=== PATIENT | female | born 1990 | race Native Hawaiian/Other Pacific Islander ===

== ENCOUNTER 2018-07-19 08:00 | Inpatient (IN) | payer OTHER ==
[2018-07-17 17:18] VITALS: BMI 22.8
[2018-07-23] MEDS ORDERED: PHENAZOPYRIDINE HCL 100 MG TABLET (FP) PO ONE (07:00)
[2018-07-23] MEDS ORDERED: PHENAZOPYRIDINE HCL 100 MG TABLET (FP) ONE (07:08)
[2018-07-23] MEDS ORDERED: VASOPRESSIN 20 UNITS/ML VIAL IV ONE (07:28)
[2018-07-23] MEDS ORDERED: ROPIVACAINE HCL 0.5% 30ML VIAL ONE (07:55)
--- NOTE | 2018-07-23 07:56 | HP ---
History & Physical Update - History History: No Change - Physical Physical: No Change - Assessment Assessment: No Change - Plan Plan: No Change (No change from office evaluation on 07/11. No h/o DVT/PE.)
[2018-07-23] MEDS ORDERED: MIDAZOLAM HCL 2 MG/2 ML SINGLE DOSE VIAL ONE ×2 (07:57)
[2018-07-23] MEDS ORDERED: DEXAMETHASONE SOD PHOSPHATE 4 MG/1 ML VIAL ONE ×2 (08:35→09:21)
[2018-07-23] MEDS ORDERED: PROPOFOL 20 ML ONE (08:36)
[2018-07-23] MEDS ORDERED: ROCURONIUM BROMIDE 50 MG/5 ML VIAL ONE (08:36)
[2018-07-23] MEDS ORDERED: ceFAZolin SODIUM 1 GM VIAL IVPB ONE (08:52)
[2018-07-23] MEDS ORDERED: ceFAZolin SODIUM 1 GM VIAL ONE ×2 (08:52→17:07)
[2018-07-23] MEDS ORDERED: GLYCOPYRROLATE 0.2 MG/1 ML VIAL ONE (09:36)
[2018-07-23] MEDS ORDERED: NEOSTIGMINE METHYLSULFATE 0.5 MG/ML - 10 ML MDV ONE (09:36)
[2018-07-23] MEDS ORDERED: PROMETHAZINE HCL 25 MG/1 ML VIAL IVPUSH PRN (10:07)
[2018-07-23] MEDS ORDERED: ACETAMINOPHEN 1000 MG/100 ML VIAL (NON FORMULARY) IVPB ONE (10:07)
[2018-07-23] MEDS ORDERED: DEXAMETHASONE SOD PHOSPHATE 4 MG/1 ML VIAL IVPUSH PRN (10:08)
[2018-07-23] MEDS ORDERED: ONDANSETRON 4 MG/2 ML VIAL IVPUSH PRN (10:08)
[2018-07-23] MEDS ORDERED: PROMETHAZINE HCL 25 MG/1 ML VIAL IVPB PRN (10:08)
--- NOTE | 2018-07-23 10:13 | OP ---
Operative Note - Note: Operative Date: 07/23/18 Pre-Operative Diagnosis: Leiomyomatous Uterus. cervical polyp Operation: Abdominal myomectomy. Cervical polyp Findings: 7 cm posterior myoma 4 cm polyp Post-Operative Diagnosis: Same as Pre-op Surgeon: Dana Nova Anesthesia: General Estimated Blood Loss (mls): 40 Operative Report Dictated: Yes
[2018-07-23] MEDS ORDERED: HYDROmorphone *PCA* 10MG/50ML DISP.SYRIN PCA SCH ×2 (10:15→10:56)
[2018-07-23] MEDS ORDERED: BISACODYL 5 MG TABLET.DR (FP) PO ONE (10:28)
[2018-07-23] MEDS ORDERED: LACTATED RINGERS SOLUTION 1,000 ML/1,000 ML INFUS.BAG IV SCH (10:30)
--- NOTE | 2018-07-23 10:42 | SURG ---
Surgery Business Technology Teacher Note Business Technology Teacher: Felisa Taveras PA-C (Suzy) Date of Service: 07/23/18 Diagnosis: Leiomyomatous Uterus. cervical polyp Procedure: Abdominal myomectomy. Cervical polyp I was present for the entirety of the operative procedure. For further detail, please refer to operative report. Visit type - Case Type Case Type: Scheduled - Emergency Emergency Visit: No - New patient This patient is new to me today: Yes Date on this admission: 07/23/18 - Critical Care Critical Care patient: No
[2018-07-23] MEDS ORDERED: IBUPROFEN 800 MG/8 ML IJ IVPB PRN (12:00)
[2018-07-23] MEDS: DOCUSATE SODIUM 100 MG CAPSULE (FP) PO SCH ×2 (15:03→22:19)
[2018-07-23] MEDS ORDERED: ACETAMINOPHEN 325 MG TABLET (FP) PO PRN (16:30)
[2018-07-23] MEDS ORDERED: DEXTROSE 5%-WATER - 50 ML IVPB ONE (17:07)
[2018-07-23] MEDS: CEFAZOLIN 1 GM in DEXTROSE 5%-WATER - 50 ML IVPB SCH (17:17)
[2018-07-23] MEDS ORDERED: HYDROmorphone *PCA* 10MG/50ML DISP.SYRIN PCA ONE (18:15)
[2018-07-23 18:54] LABS: BASO % 0.1 % (0-2.0); HEMATOCRIT 39.9 % (32.4-45.2); HEMOGLOBIN 13.5 GM/dL (10.7-15.3); LYMPH % 6.7 % (8-40); MCHC 33.9 g/dl (32.0-36.0); MEAN CELL VOLUME 88.3 fl (80-96); MONO % 0.7 % (3.8-10.2); NEUT % 92.5 % (42.8-82.8); PLATELET COUNT 263 K/MM3 (134-434); RBC 4.51 M/mm3 (3.60-5.2); WHITE BLOOD COUNT 15.6 K/mm3 (4.0-10.0)
--- NOTE | 2018-07-23 19:19 | OP ---
DATE OF OPERATION: 07/23/2018 PREOPERATIVE DIAGNOSIS: Leiomyomatous uterus and cervical polyp. OPERATION: Abdominal myomectomy and cervical polypectomy. FINDINGS: A 4-cm cervical polyp and a 7-cm posterior myoma. SURGEON: Juani Nova MD AIRPORT SALES AGENT: SEVEN Taveras ANESTHESIA: General. ANESTHESIOLOGIST: Maximilian Paula MD ESTIMATED BLOOD LOSS: 40 mL PROCEDURE: Patient was taken to the operating room, placed in supine position, prepped and draped in the usual sterile fashion. Timeout was called in accordance with hospital regulation. Pfannenstiel skin incision was made with a scalpel. Cautery was then used to go through layers of abdominal wall to level of the fascia. Fascia was cut in the midline, and cautery was then used to open the fascia in the following fashion. Kochers were then used to bluntly and sharply dissect the rectus muscle off the fascia. Muscles split in the midline. Peritoneal cavity was then entered, carried upward and downward. Bladder retractor was then placed. The peritoneal cavity was then entered, and uterus was then exteriorized. The posterior myoma was noted. Pitressin was infiltrated into the serosa. A vertical incision was made on the serosa, and a 7- to 8-cm myoma was then enucleated out of the cavity. Cavity was then closed using 0 Vicryl suture in a continuous and locking and 2-0 V-Loc suture was used on serosa. Hemostasis was then achieved. Uterus was then interiorized. Tubes and ovaries were noted to be normal. Abdominal sweep done. Peritoneum closed using 0 Vicryl suture. Muscles approximated in the midline using 0 Vicryl suture. Fascia was then closed using 0 Vicryl suture in 2 parts, 2-0 Vicryl suture was then used to close the subcutaneous in interrupted sutures, and skin was then closed using 3-0 Vicryl in subcuticular fashion. Wound was washed and dressed. Steri-Strips were placed. Attention was then drawn to the vagina where speculum was placed in the vagina, and the cervical polyp was seen coming off of the cervix. Metzenbaum scissors were then used to cut the polyp away, and 2-0 Vicryl was then used to close the incision. Silver nitrate was then placed for further hemostasis. All instruments were then removed. Polyp was then submitted to pathology along with the posterior myoma. The EBL was 40 mL. The patient had tolerated the procedure well, was taken to recovery room in stable condition. JUANI NOVA M.D. [id number]
[2018-07-23 19:53] LABS: PLATELET ESTIMATE ADEQUATE
[2018-07-24] MEDS ORDERED: ceFAZolin SODIUM 1 GM VIAL ONE ×2 (01:19→10:33)
[2018-07-24] MEDS ORDERED: DEXTROSE 5%-WATER - 50 ML IVPB ONE ×2 (01:19→10:33)
[2018-07-24] MEDS: CEFAZOLIN 1 GM in DEXTROSE 5%-WATER - 50 ML IVPB SCH ×2 (01:22→10:38)
[2018-07-24] MEDS: DOCUSATE SODIUM 100 MG CAPSULE (FP) PO SCH ×3 (06:06→21:24)
--- NOTE | 2018-07-24 07:47 | PN ---
Progress Note (short form) - Note Progress Note: POD 1, s/p open abdominal myomectomy Pt seen and examined. States she is feeling "okay". Reports abdominal pain with movement, relieved by ETHANOL MAINTENANCE MECHANIC. Has minimal vaginal bleeding, no clots. Reports difficulty breathing at times during night, uses inhaler at home with relief. Tolerating PO. Has not been oob. Townsend in place. Denies cp/sob, n/v/d, calf pain /edema. Vital Signs Temp 98.6 F 07/24/18 05:17 Pulse 94 H 07/24/18 05:17 Resp 20 07/24/18 05:17 BP 102/57 L 07/24/18 05:17 Pulse Ox 100 07/24/18 01:28 Intake & Output 07/23/18 07/23/18 07/24/18 11:59 23:59 11:59 Intake Total 1700 1050 1000 Output Total 490 2100 800 Balance 1210 -1050 200 Intake: IV 1700 1000 1000 LACTATED RINGERS SOLUTION 1000 1000 1,000 ml In 1,000 ml @ 100 mls/hr IV ASDIR VANESSA Rx#:[id number] IVPB 50 Output: Urine 450 2100 800 Townsend 1900 800 Estimated Blood Loss 40 Other: Voiding Method Indwelling Catheter CBC, BMP 07/24/18 06:30 07/24/18 06:30 Gen: awake, alert, nad Resp: cta b/l CV: rrr, s1s2 Abdomen: soft, nt/nd, abdominal dressings c/d/i, 4x4's in abd with minimal bloody drainage. No incisional erythema or drainage. No palpable hematoma. Ext: soft, no edema or ttp A/P: 27 y/o F w/ h/o Leiomyomatous Uterus, now s/p open abdominal myomectomy on 07/23. Low grade fevers overnight (99F), slightly tachycardic this morning likely due to pain. ETHANOL MAINTENANCE MECHANIC used minimally overnight. Labs stable. -ETHANOL MAINTENANCE MECHANIC d/c'ed, pain control with Oxycodone 5/10mg q4hrs prn, Tylenol 650mg q4hrs prn, Ibuprofen 800mg q8hrs prn -Townsend out this AM, TOV -DVT prophylaxis with Lovenox 40sq qd, b/l venodynes, ambulation -oob as tolerated -Advance diet to regular diet -VSS per routine -Incentive spirometry encouraged -Bowel regimen as ordered -Plan for d/c tomorrow d/w attending Dr Nova
[2018-07-24 07:51] LABS: HEMATOCRIT 37.5 % (32.4-45.2); HEMOGLOBIN 12.4 GM/dL (10.7-15.3); MCH 29.2 pg (25.7-33.7); MCHC 33.1 g/dl (32.0-36.0); MEAN CELL VOLUME 88.2 fl (80-96); MEAN PLT VOLUME 8.5 fl (7.5-11.1); PLATELET COUNT 246 K/MM3 (134-434); RBC 4.25 M/mm3 (3.60-5.2)
[2018-07-24 08:15] LABS: ANION GAP 8 MMOL/L (8-16); BLOOD UREA NITROGEN 9 mg/dL (7-18); CHLORIDE 103 mmol/L (98-107); CO2 26 mmol/L (21-32); CREATININE 0.6 mg/dL (0.55-1.3); GLUCOSE,RANDOM 101 mg/dL (74-106); SODIUM 137 mmol/L (136-145)
[2018-07-24] MEDS ORDERED: oxyCODONE HCL 5 MG TABLET PO PRN (08:22)
[2018-07-24] MEDS ORDERED: ALBUTEROL SO4 8 GM HFA INHALER IH PRN (08:27)
[2018-07-24] MEDS ORDERED: PCA PUMP KEY 1 EACH EACH ONE (08:34)
[2018-07-24] MEDS ORDERED: ENOXAPARIN NA (PORCINE) 30 MG/0.3 ML DISP.SYRIN SQ SCH (10:00)
[2018-07-24] MEDS: oxyCODONE HCL 5 MG TABLET PO PRN ×2 (10:40→15:37)
[2018-07-24] MEDS: ENOXAPARIN NA (PORCINE) 40 MG/0.4 ML DISP.SYRIN SQ SCH (10:41)
--- NOTE | 2018-07-24 15:37 | PN ---
Progress Note (short form) - Note Progress Note: Anesthesia postop note 27 y/o F s/p GA for abdominal myomectomy, tap blocks and infrastructure project manager for postop pain management POD31, vss, aaox3, pain well controlled over night, no anesthesia complications , infrastructure project manager dc'ed.
[2018-07-24] MEDS: ACETAMINOPHEN 325 MG TABLET (FP) PO PRN ×2 (15:38→22:09)
[2018-07-25] MEDS: DOCUSATE SODIUM 100 MG CAPSULE (FP) PO SCH (06:23)
--- NOTE | 2018-07-25 08:33 | PN ---
Progress Note (short form) - Note Progress Note: POD 2, s/p open abdominal myomectomy Pt seen and examined. Feels well today. Still has some abdominal pain with movement, improved with PO meds. Has been oob, voiding without issues. Tolerating PO. Has minimal vaginal bleeding, no clots. Reports improvement in SOB. Denies cp/sob, n/v/d, calf pain/edema. Vital Signs Temp 98.4 F 07/24/18 21:00 Pulse 82 07/24/18 21:00 Resp 20 07/24/18 21:00 BP 101/59 L 07/24/18 21:00 Pulse Ox 100 07/24/18 01:28 Intake & Output 07/24/18 07/24/18 07/25/18 11:59 23:59 11:59 Intake Total 1000 Output Total 1150 950 Balance -150 -950 Intake: IV 1000 LACTATED RINGERS SOLUTION 1000 1,000 ml In 1,000 ml @ 100 mls/hr IV ASDIR VANESSA Rx#:[id number] Output: Urine 1150 950 Townsend 1150 Void 950 Other: Voiding Method Toilet Bowel Movement No No CBC, BMP 07/24/18 06:30 07/24/18 06:30 Gen: awake, alert, nad Resp: cta b/l CV: rrr, s1s2 Abdomen: soft, nt/nd, abdominal dressings c/d/i, 4x4's in abd with minimal bloody drainage. No incisional erythema or drainage. No palpable hematoma. Ext: soft, no edema or ttp A/P: 27 y/o F w/ h/o Leiomyomatous Uterus, now s/p open abdominal myomectomy on 07/23. Doing well this AM. Ready for discharge. Discharge instructions discussed with pt. All questions answered. d/w attending Dr Nova
[2018-07-25 08:53] VITALS: BP 100/63; PULSE 83; TEMP 99.1
--- NOTE | 2018-07-25 08:58 | DS ---
Physical Exam: SUBJECTIVE: Patient seen and examined on the morning of discharge. Doing well, no issues overnight. No complaints. Denies cp/sob, n/v/d, calf pain or edema. OBJECTIVE: Vital Signs Period Temp Pulse Resp BP Sys/Healy Pulse Ox Last 24 Hr 98.4 F-98.9 F 82-86 20-20 101-108/57-72 PHYSICAL EXAM GENERAL: The patient is awake, alert, and fully oriented, in no acute distress. HEAD: Normal with no signs of trauma. EYES: PERRL, extraocular movements intact, sclera anicteric, conjunctiva clear. ENT: Ears normal, nares patent, oropharynx clear without exudates, moist mucous membranes. NECK: Trachea midline, full range of motion, supple. LUNGS: Breath sounds equal, clear to auscultation bilaterally, no wheezes, no crackles, no accessory muscle use. HEART: Regular rate and rhythm, S1, S2 without murmur, rub or gallop. ABDOMEN: Soft, nontender, nondistended, normoactive bowel sounds, no guarding, no rebound, no hepatosplenomegaly, no masses. EXTREMITIES: 2+ pulses, warm, well-perfused, no edema. NEUROLOGICAL: Cranial nerves II through XII grossly intact. Normal speech, gait not observed. PSYCH: Normal mood, normal affect. SKIN: Warm, dry, normal turgor, no rashes or lesions noted. LABS Laboratory Results - last 24 hr 07/24/ 06:30 WBC 14.0 H RBC 4.25 Hgb 12.4 Hct 37.5 MCV 88.2 MCH 29.2 MCHC 33.1 RDW 13.0 Plt Count 246 MPV 8.5 HOSPITAL COURSE: The patient was admitted to the Gynecologic Unit after elective open abdominal myomectomy for a history of leiomyomas. Pt tolerated the surgery well with no complications. Rea-operative IV ABX were administered. Pain control was achieved with narcotic and non-narcotic pain management with an oral and IV approach. POD #1, the patients banks was removed and diet was advanced. Patient passed TOV. DVT prophylaxis was achieved with Lovenox 40mg qd, SCDs and early ambulation. The patient ambulated the halls without issue. Narcotic scripts were checked with [facility] ANESTHESIOLOGY MEDICAL DOCTOR prior to escribe. The discharge instructions and an oral pain management plan were reviewed with the patient. All questions answered. Above plan discussed with Dr. Nova and agreed. Date of Admission: 07/23/18 Date of Discharge: 07/25/18 Minutes to complete discharge: 15 Discharge Summary Reason For Visit: LEIOMYOMA OF UTERUS Condition: Stable - Instructions Diet, Activity, Other Instructions: Dr. Dana Nova Clinical Educator discharge instructions Physical activity Resume your normal everyday activity as tolerated no heavy lifting or exercise until seen by your surgeon. You may walk unlimited marsha of and climb stairs. You may resume driving the car when you feel safe and comfortable behind the wheel. No sexual activity as instructed by Dr. Nova. Wound care If you have a bandage, leave it on, and keep dry for 48-72 hours. After that time discard the outer bandage. If they are tapes on the skin under the out of bandage leave them in place. They will peel off in the next 7 to 10 days. Do Not Peel them off. You may shower the day after surgery. If there are tapes present on the skin, you may shower over them. Diet There are no dietary restrictions. Eat healthy, high-fiber foods. Drink 6 to 8 glasses of liquid each day. This will assist in keeping your bowels are regular. Pain management You may take Tylenol (acetaminophen) or Ibuprofen (for example, Motrin, Advil etc.) from my pain prescription medication is ordered should be taken as prescribed for moderate to severe pain. Call Dr. Nova for any of the following: Severe pain not relieved by medication Fever of 101 or higher Excessive bleeding or drainage on dressing Inability to urinate ISTOP Reference: [id number] Call the office at [phone] for an appointment in seven days. Disposition: HOME - Home Medications Comprehensive Discharge Medication List: Ambulatory Orders Oxycodone HCl 5 mg PO Q6H 7 Days #20 tablet MDD 6 07/23/18 Problem List - Problems (1) Leiomyoma Code(s): D21.9 - BENIGN NEOPLASM OF CONNECTIVE AND OTHER SOFT TISSUE, UNSP This patient is new to me today: Yes Date on this admission: 07/25/18 Emergency Visit: No Critical Care patient: No - Discharge Referral Referred to [facility] Med P.C.: No
[2018-07-25] MEDS: ENOXAPARIN NA (PORCINE) 40 MG/0.4 ML DISP.SYRIN SQ SCH (10:22)
--- NOTE | 2018-07-25 18:27 | PATH ---
Surgical Pathology Report Patient Name: ODILIA CONTI [facility]. Rec. #: [id number] /Age/Gender: 1990 (Age: 27) / F Account: [id number] Location: [facility] OBS/NUCLEAR CRITICALITY SAFETY ENGINEER Taken: 07/23/2018 Received: 07/23/2018 Reported: 07/25/2018 Physicians: Dana Nova M.D. Specimen(s) Received A: FIBROID B: CERVICAL POLYP Clinical History Fibroid uterus and cervical polyp Final Diagnosis A. FIBROID, MYOMECTOMY: LEIOMYOMA. B. CERVICAL POLYP, POLYPECTOMY: BENIGN ACUTELY INFLAMED ECTOCERVICAL POLYP. Electronically Signed Leanna Tamez M.D. Gross Description A. Received in formalin labeled "fibroid," is a 67 g 5.5 x 5.5 x 4.4 cm pink-soria nodule, consistent with a fibroid. Sectioning reveals homogeneous pink-soria parenchyma with whorled architecture. No areas of hemorrhage or necrosis are identified. Plasma Processing Centrifuge Operator sections are submitted in 3 cassettes. B. Received in formalin labeled "cervical polyp," is a 3.2 x 1.7 x 0.3 cm pink-soria, polypoid portion of soft tissue. The specimen is bisected and entirely submitted in 2 cassettes. DL/07/23/201807/23/2018
== END 2018-07-25 11:15 | disposition home or self-care (01) | DRG 519 ==
LOC: JSAMEDAYSX 07-23 04:55 → J3W 07-23 12:54
PROVIDERS: ADMIT Obstetrics & Gynecology; ATTEND Obstetrics & Gynecology
PROC: 0UBC0ZX Excision of Cervix, Open Approach, Diagnostic (ICD-10-PCS; 2018-07-23)
PROC: 0UB90ZZ Excision of Uterus, Open Approach (ICD-10-PCS; principal; 2018-07-23 08:00)
DX: D25.9 Leiomyoma of uterus, unspecified (principal); N84.1 Polyp of cervix uteri; D64.9 Anemia, unspecified; R00.0 Tachycardia, unspecified; R50.9 Fever, unspecified
CPT/HCPCS: 36415; 80048; 84703; 85025; 85027; 86850; 86900; 86901; 88305-TC; 94760; J0131

== ENCOUNTER 2019-06-12 15:37 | Emergency (ER) | payer OTHER ==
--- NOTE | 2019-06-12 15:41 | PDOC ---
Rapid Medical Evaluation Time Seen by Provider: 06/12/19 15:38 Medical Evaluation: Allergies Allergy/AdvReac Type Severity Reaction Status Date / Time No Known Allergies Allergy Verified 07/17/18 17:18 06/12/19 15:39 CC: nausea and vomiting. Blood streaked vomitus. PE: No focal findings. Orders: urine Patient will proceed to ER for further evaluation. 06/12/19 15:40 06/12/19 15:41 Discharge Disposition - Diagnosis Vomiting - Referrals - Patient Instructions - Post Discharge Activity
[2019-06-12 15:43] VITALS: TEMP 98.1; BMI 26.6
[2019-06-12] MEDS ORDERED: SODIUM CHLORIDE 1,000 ML IV STA (17:04)
[2019-06-12] MEDS ORDERED: MECLIZINE HCL 25 MG TABLET (FP) PO ONE (17:04)
[2019-06-12] MEDS ORDERED: ONDANSETRON 4 MG/2 ML VIAL IVPUSH ONE (17:04)
[2019-06-12] MEDS ORDERED: MECLIZINE HCL 25 MG TABLET (FP) ONE (17:08)
[2019-06-12] MEDS ORDERED: ONDANSETRON 4 MG/2 ML VIAL ONE (17:08)
[2019-06-12] MEDS ORDERED: PANTOPRAZOLE SODIUM 40 MG VIAL IVPUSH ONE (17:14)
[2019-06-12] MEDS ORDERED: PANTOPRAZOLE SODIUM 40 MG/100 ML BAG IVPB ONE (17:22)
[2019-06-12 17:27] LABS: BASO % 0.6 % (0-2.0); EOS % 3.3 % (0-4.5); HEMATOCRIT 41.2 % (32.4-45.2); HEMOGLOBIN 13.6 GM/dL (10.7-15.3); LYMPH % 30.5 % (8-40); MCH 29.2 pg (25.7-33.7); MEAN CELL VOLUME 88.5 fl (80-96); MEAN PLT VOLUME 8.5 fl (7.5-11.1); NEUT % 57.6 % (42.8-82.8); PLATELET COUNT 302 K/MM3 (134-434); RBC 4.66 M/mm3 (3.60-5.2); RDW 13.3 % (11.6-15.6); WHITE BLOOD COUNT 6.7 K/mm3 (4.0-10.0)
--- NOTE | 2019-06-12 17:54 | PDOC ---
History of Present Illness - General Chief Complaint: Nausea/Vomiting Stated Complaint: VOMITING/BLEEDING Time Seen by Provider: 06/12/19 15:38 History Source: Patient Exam Limitations: No Limitations Past History - Past Medical History Allergies/Adverse Reactions: Allergies Allergy/AdvReac Type Severity Reaction Status Date / Time No Known Allergies Allergy Verified 06/12/19 15:42 Home Medications: Ambulatory Orders Oxycodone HCl 5 mg PO Q6H 7 Days #20 tablet MDD 6 07/23/18 Meclizine HCl 50 mg PO BID PRN #28 tablet 06/12/19 Anemia: Yes Asthma: No Cancer: No Cardiac Disorders: No CVA: No COPD: No CHF: No Dementia: No Diabetes: No GI Disorders: No Disorders: No HTN: No Hypercholesterolemia: No Liver Disease: No Seizures: No Thyroid Disease: No - Reproductive History Is Patient Now?: (unknown) - Psycho Social/Smoking Cessation Hx Smoking History: Never smoked Have you smoked in the past 12 months: No Information on smoking cessation initiated: No Hx Alcohol Use: No Drug/Substance Use Hx: No Substance Use Type: None Hx Substance Use Treatment: No *Physical Exam - Vital Signs Last Vital Signs Temp Pulse Resp BP Pulse Ox 98.1 F 97 H 18 116/78 97 06/12/19 15:41 06/12/19 15:41 06/12/19 15:41 06/12/19 15:41 06/12/19 15:41 - Physical Exam General Appearance: No: Apparent Distress HEENT: positive: EOMI, ROMULO, Other (no nystagmus noted; however, patient notes feeling more dizzy when looking to left) Respiratory/Chest: positive: Lungs Clear, Normal Breath Sounds. negative: Respiratory Distress Cardiovascular: positive: Regular Rhythm, Regular Rate, S1, S2. negative: Murmur Gastrointestinal/Abdominal: positive: Normal Bowel Sounds, Soft. negative: Tender, Distended, Guarding, Rebound Neurologic: positive: account manager II-XII NML intact, Fully Oriented, Alert, Normal Mood/ Affect, Motor Strength 5/5, Finger to Nose (normal), Other (normal gait). negative: Facial Droop, Sensory Deficit, Confused, Disoriented ED Treatment Course - LABORATORY CBC & Chemistry Diagram: 06/12/19 17:18 06/12/19 17:18 - ADDITIONAL ORDERS Additional order review: Laboratory Results 06/12/19 15:51 Urine HCG, Qual Negative 06/12/19 17:18 RBC 4.66 MCV 88.5 MCHC 33.0 RDW 13.3 MPV 8.5 Neutrophils % 57.6 D Lymphocytes % 30.5 D Monocytes % 8.0 D Eosinophils % 3.3 D Basophils % 0.6 D - Medications Given in the ED: ED Medications Discontinued Medications Generic Name Dose Route Start Last Admin Trade Name Freq PRN Reason Stop Dose Admin Meclizine HCl 50 mg 06/12/19 17:04 06/12/19 17:21 Antivert - PO 06/12/19 17:05 50 mg ONCE ONE Administration Ondansetron HCl 4 mg 06/12/19 17:04 06/12/19 17:21 Zofran Injection IVPUSH 06/12/19 17:05 4 mg ONCE ONE Administration Pantoprazole Sodium 40 mg 06/12/19 17:14 06/12/19 17:26 Protonix Iv IVPUSH 06/12/19 17:15 40 mg ONCE ONE Administration Medical Decision Making - Medical Decision Making 28 y/o F hx of myomectomy presents with feeling lightheaded/vertigo around 2:30 PM today along with 2 episodes of emesis with small streak of blood. Denies feeling this way before. Denies fever, URI sxs, sob, cp, abd pain, diarrhea, urinary complaints, headache, tinnitus, numbness/tingling/weakness of extremities. States dizziness is constant and not particularly exacerbated by anything. Denies drug use. Denies smoking. Drinks alcohol socially (denies any recent heavy intake of alcohol). Possible BPPV Plan: labs, IVF, Meclizine, zofran, reassess 06/12/19 17:52 Labs unremarkable Patient feeling much better on reassessment will refer to ENT stable for dc 06/12/19 18:49 Discharge - Discharge Information Problems reviewed: Yes Clinical Impression/Diagnosis: BPPV (benign paroxysmal positional vertigo) Qualifiers: Laterality: left Qualified Code(s): H81.12 - Benign paroxysmal vertigo, left ear Condition: Improved Disposition: HOME - Admission No - Additional Discharge Information Prescriptions: Meclizine HCl 50 mg PO BID PRN #28 tablet PRN Reason: dizziness Prescription Drug Monitoring Program (I-STOP) results: I-STOP not reviewed - Follow up/Referral Referrals: Kay Jones MD [Primary Care Provider] - 2 Days Mikel Sharif MD [Staff Physician] - 2 Days - Patient Discharge Instructions Patient Printed Discharge Instructions: Benign Paroxysmal Positional Vertigo Additional Instructions: Thank you for choosing [facility]. It was a pleasure taking care of you. Take Meclizine as needed for vertigo. This medication can make you drowsy Please follow-up with ENT doctor for further evaluation of your symptoms Return to the Emergency Department if your symptoms worsen or persist, you have fever, chest pain, severe abdominal pain, vomiting, weakness of extremities ( arms and/or legs), changes in vision or walking or other concerning symptoms. - Post Discharge Activity
[2019-06-12 17:58] LABS: ALBUMIN 3.9 g/dl (3.4-5.0); BILIRUBIN,TOTAL 0.2 mg/dL (0.2-1); BLOOD UREA NITROGEN 8.9 mg/dL (7-18); CALCIUM 9.4 mg/dL (8.5-10.1); CREATININE 0.8 mg/dL (0.55-1.3); POTASSIUM 4.4 mmol/L (3.5-5.1); TOT PROT 7.6 g/dl (6.4-8.2)
[2019-06-12 19:01] VITALS: BP 112/69; PULSE 71
== END 2019-06-12 19:00 | disposition home or self-care (01) ==
LOC: JER 15:37
PROC: 3E033GC Introduction of Other Therapeutic Substance into Peripheral Vein, Percutaneous Approach (ICD-10-PCS; principal; 2019-06-12)
PROC: 3E0337Z Introduction of Electrolytic and Water Balance Substance into Peripheral Vein, Percutaneous Approach (ICD-10-PCS; 2019-06-12)
DX: H81.12 Benign paroxysmal vertigo, left ear (principal); D21.9 Benign neoplasm of connective and other soft tissue, unspecified; D64.9 Anemia, unspecified
CPT/HCPCS: 36415; 80053; 84703; 85025; 99283-25; J7030

== ENCOUNTER 2020-09-21 06:07 | Inpatient (IN) | payer OTHER ==
[2020-09-21 07:02] VITALS: BMI 26.1
[2020-09-22 09:42] LABS: BASO % 0.3 % (0-2.0); EOS % 0.7 % (0-4.5); HEMATOCRIT 31.3 % (32.4-45.2); HEMOGLOBIN 10.7 GM/dL (10.7-15.3); LYMPH % 13.4 % (8-40); MCH 31.7 pg (25.7-33.7); MEAN CELL VOLUME 93.2 fl (80-96); MEAN PLT VOLUME 8.1 fl (7.5-11.1); MONO % 4.4 % (3.8-10.2); NEUT % 81.2 % (42.8-82.8); PLATELET COUNT 194 K/MM3 (134-434); RBC 3.36 M/mm3 (3.60-5.2)
[2020-09-23 08:21] VITALS: BP 97/59; PULSE 88; TEMP 97.8
== END 2020-09-23 13:54 | disposition home or self-care (01) | DRG 540 ==
LOC: JLDR 06:07 → J3W 10:46
PROVIDERS: ADMIT Obstetrics & Gynecology; ATTEND Obstetrics & Gynecology
PROC: 10D00Z1 Extraction of Products of Conception, Low, Open Approach (ICD-10-PCS; principal; 2020-09-21)
DX: O34.29 Maternal care due to uterine scar from other previous surgery (principal); O99.02 Anemia complicating childbirth; D64.9 Anemia, unspecified; Z3A.37 37 weeks gestation of pregnancy; Z37.0 Single live birth
CPT/HCPCS: 36415; 85025; 86780; C9803; J0131; U0003

== ENCOUNTER 2023-10-02 17:34 | Emergency (ER) | payer OTHER ==
[2023-10-02 18:01] VITALS: BP 112/72; PULSE 110; RESP 18; TEMP 98.2; BMI 22.7
[2023-10-02] MEDS ORDERED: DEXAMETHASONE SOD PHOSPHATE 10 MG/1 ML VIAL IM ONE (18:42)
[2023-10-02] MEDS ORDERED: DEXAMETHASONE SOD PHOSPHATE 10 MG/1 ML VIAL ONE (18:44)
== END 2023-10-02 20:54 | disposition home or self-care (01) ==
LOC: JER 17:34 → JERFT 17:34
PROC: 3E023GC Introduction of Other Therapeutic Substance into Muscle, Percutaneous Approach (ICD-10-PCS; principal; 2023-10-02)
DX: R07.9 Chest pain, unspecified (principal); R51.9 Headache, unspecified; R05.9 Cough, unspecified; J02.9 Acute pharyngitis, unspecified; Z20.822 Contact with and (suspected) exposure to COVID-19
CPT/HCPCS: 0241U-QW; 70360-TC-FY; 93005; 93010; 99285-25; J1100